=== PATIENT | female | born 1955 | race Caucasian/White ===

== ENCOUNTER 2024-05-07 09:01 | Outpatient (CLI) | payer MEDICARE, OTHER ==
[2024-05-07] MEDS ORDERED: Iopamidol 370 76% 100 ML VIAL ONE (15:08)
== END 2024-05-07 09:02 | disposition home or self-care (01) ==
LOC: CT 09:01
PROVIDERS: ATTEND Internal Medicine Gastroenterology
DX: K58.0 Irritable bowel syndrome with diarrhea (principal); R12 Heartburn; R63.4 Abnormal weight loss; I77.4 Celiac artery compression syndrome
CPT/HCPCS: 36415; 74177; 82565